=== PATIENT | male | born 1975 | race Hispanic/Latino ===

== ENCOUNTER 2020-06-20 10:05 | Emergency (ER) | payer SELFPAY ==
--- NOTE | 2020-06-20 11:41 | RAD ---
EXAM DESCRIPTION: Chest,1 View CLINICAL HISTORY: 45 years Male, SHORTNESS OF BREATH COMPARISON: None. TECHNIQUE: AP portable chest. FINDINGS/IMPRESSION: Subtle increased density within the left mid and lower lung periphery may represent pneumonia (including viral pneumonia) within the appropriate clinical setting. Mild left basilar subsegmental atelectasis. No pleural effusion or pneumothorax. The heart is normal in size. No acute osseous abnormality. Electronically signed by: Tashi Dunn DO 06/20/2020 11:39 AM [facility]
[2020-06-20 12:37] VITALS: TEMP 98.2
--- NOTE | 2020-06-20 12:43 | ED.PDOC ---
History of Present Illness - General Time Seen by Provider: 06/20/20 12:33 - History of Present Illness Allergies/Adverse Reactions: Allergies NO KNOWN ALLERGY Allergy (Unverified 10/08/13 19:27) Home Medications: Ambulatory Orders Methylprednisolone [Medrol Dose Paulo] 4 mg PO DAILY 6 Days #21 tab 06/20/20 Progress - Progress Progress: Differential diagnosis: Covid, pneumonia, influenza, bronchitis among others. 06/20/20 12:43 Patient is positive for Covid. Chest x-ray shows possible viral infiltrate. He does not have a white count. Will discharge home with Decadron prescription. Patient has been told to self isolate and follow-up with his PCP. He understands the plan of care and is in agreement. Rolando Jean-Baptiste M.D. #[id number] - Results/Orders Results/Orders: 06/20/20 11:15 Isolation:Airborne ONCE EKG STAT Pulse Ox, Continuous Monitoring STAT 06/21/20 11:15 Pulse Ox, Continuous Monitoring STAT 06/22/20 11:15 Pulse Ox, Continuous Monitoring STAT 06/23/20 11:15 Pulse Ox, Continuous Monitoring STAT Laboratory Results - last 24 hr 06/20/20 06/20/20 06/20/20 11:25 11:25 11:25 WBC 5.5 RBC 5.38 Hgb 16.0 Hct 45.6 MCV 84.9 MCH 29.7 MCHC 35.1 RDW 13.8 Plt Count 112 L MPV 9.9 Absolute Neuts (auto) 4.20 Absolute Lymphs (auto) 0.80 L Absolute Monos (auto) 0.40 Absolute Eos (auto) 0.00 Absolute Basos (auto) 0.00 Neutrophils % 77.0 Lymphocytes % 14.7 L Monocytes % 7.5 Eosinophils % 0.2 L Basophils % 0.6 PTT (SP) 34.1 H D-Dimer, Quantitative < 131.0 L Sodium 139 Potassium 3.8 Chloride 101 Carbon Dioxide 27 Anion Gap 14.8 BUN 7 Creatinine 0.69 BUN/Creatinine Ratio 10.1 Random Glucose 102 Serum Osmolality 275.7 Calcium 8.9 Magnesium 2.1 Total Bilirubin 0.7 AST 30 ALT 29 Alkaline Phosphatase 54 LD Total 181 H Creatine Kinase 158 Troponin I C-Reactive Protein 6.8 H Serum Total Protein 7.4 Albumin 4.3 Globulin 3.1 Albumin/Globulin Ratio 1.4 06/20/20 11:25 WBC RBC Hgb Hct MCV MCH MCHC RDW Plt Count MPV Absolute Neuts (auto) Absolute Lymphs (auto) Absolute Monos (auto) Absolute Eos (auto) Absolute Basos (auto) Neutrophils % Lymphocytes % Monocytes % Eosinophils % Basophils % PTT (SP) D-Dimer, Quantitative Sodium Potassium Chloride Carbon Dioxide Anion Gap BUN Creatinine BUN/Creatinine Ratio Random Glucose Serum Osmolality Calcium Magnesium Total Bilirubin AST ALT Alkaline Phosphatase LD Total Creatine Kinase Troponin I < 0.02 C-Reactive Protein Serum Total Protein Albumin Globulin Albumin/Globulin Ratio Vital Signs 06/20/20 10:10 Temperature 98.2 F Pulse Rate [ 69 pulse ox] Respiratory 18 Rate Blood Pressure 147/97 [Left Arm] O2 Sat by Pulse 98 Oximetry EKG performed 20 June 2020 at 1017 hrs.: Normal sinus rhythm at 76 bpm, normal axis deviation no ST or T wave depression or elevation. No acute ischemia, normal EKG. No comparison EKG available at this time. EXAM DESCRIPTION: Chest,1 View CLINICAL HISTORY: 45 years Male, SHORTNESS OF BREATH COMPARISON: None. TECHNIQUE: AP portable chest. FINDINGS/IMPRESSION: Subtle increased density within the left mid and lower lung periphery may represent pneumonia (including viral pneumonia) within the appropriate clinical setting. Mild left basilar subsegmental atelectasis. No pleural effusion or pneumothorax. The heart is normal in size. No acute osseous abnormality. Electronically signed by: Tashi Dunn DO 06/20/2020 11:39 AM [facility] Covid positive Departure - Departure Clinical Impression: COVID-19 virus IgG antibody detected, COVID-19, Viral respiratory illness Disposition: Discharge to Home or Self Care Condition: Good Instructions: Coronavirus Disease 2019 (COVID-19) Diet: resume usual diet Activity: increase activity as tolerated Referrals: JOHN GAYTAN IV, CANINE SERVICE INSTRUCTOR TRAINER [Active Staff] - 1 Week Prescriptions: Methylprednisolone [Medrol Dose Paulo] 4 mg PO DAILY 6 Days #21 tab Home Medications: Ambulatory Orders Methylprednisolone [Medrol Dose Paulo] 4 mg PO DAILY 6 Days #21 tab 06/20/20
[2020-06-20 12:52] VITALS: BP 118/80; O2SAT 100
== END 2020-06-20 12:52 | disposition home or self-care (01) ==
LOC: ER 10:05
DX: U07.1 COVID-19 (principal)

== ENCOUNTER 2020-06-22 08:27 | Emergency (ER) | payer SELFPAY ==
[2020-06-22] MEDS ORDERED: SODIUM CHLORIDE 0.9% 1000ML 1,000 ML IVS ONE (08:46)
--- NOTE | 2020-06-22 08:49 | ED.PDOC ---
History of Present Illness - General Time Seen by Provider: 06/22/20 08:34 Source: patient, RN notes reviewed, Vital Signs reviewed, rotating equipment specialist, old records Exam Limitations: no limitations, language barrier - History of Present Illness Comments: 45 yo male dx with COVID 5 days ago presents with worsening short of breath, chest tightness worse with breathing and decrease appetite. Was seen here two days ago and sent home on dexamethasone. SOB not worse with activity. no family hx of heart disease or blood clots. no recent travel or immobilization. Allergies/Adverse Reactions: Allergies NO KNOWN ALLERGY Allergy (Unverified 06/22/20 08:57) Home Medications: Ambulatory Orders Methylprednisolone [Medrol Dose Paulo] 4 mg PO DAILY 6 Days #21 tab 06/20/20 Azithromycin 250 mg PO DAILY #6 tab 06/22/20 Famotidine 20 mg PO BID PRN #30 tab 06/22/20 Polyethylene Glycol 3350 [Miralax] 17 gm PO DAILY 20 Days #20 pckt 06/22/20 Review of Systems - Review of Systems Constitutional: States: malaise. Denies: chills, fever EENTM: Denies: blurred vision, ear pain, throat pain Respiratory: States: cough, short of breath. Denies: orthopnea, stridor, wheezing Cardiology: States: chest pain. Denies: palpitations, syncope Gastrointestinal/Abdominal: States: constipation. Denies: abdominal pain, diarrhea, nausea, vomiting Genitourinary: Denies: frequency, hematuria Musculoskeletal: Denies: back pain, muscle pain Skin: Denies: dryness Neurological: Denies: headache, numbness, seizure Endocrine: Denies: unexplained weight gain, unexplained weight loss Hematologic/Lymphatic: Denies: blood clots, easy bleeding, easy bruising Past Medical History (General) - Patient Medical History Hx Seizures: No Hx Stroke: No Hx Dementia: No Hx Asthma: No Hx of COPD: No Hx Cardiac Disorders: No Hx Congestive Heart Failure: No Hx Pacemaker: No Hx Hypertension: No Hx Thyroid Disease: No Hx Diabetes: No Hx Gastroesophageal Reflux: Yes Hx Renal Disease: No Hx Cancer: No Hx of HIV: No Hx Hepatitis B: No Hx Hepatitis C: No Hx MRSA: No Surgical History: no surgical history - Vaccination History Hx Influenza Vaccination: No - Social History Hx Tobacco Use: No Hx Chewing Tobacco Use: No Hx Alcohol Use: Yes - social Hx Substance Use: No Hx Substance Use Treatment: No Hx Depression: No Feels Threatened In Home Enviroment: No Family Medical History - Family History Mother Family History: Unknown Hx Family Congestive Heart Failure: No Hx Cardiac Disease: No Hx Family;Other: denies hx of blood clots Physical Exam - Physical Exam General Appearance: Alert, Comfortable, No apparent distress, Well Developed, Well Groomed, Well Hydrated, Well Nourished Eye Exam: bilateral normal ENT Exam: normal ENT inspection, hearing grossly normal, TMs normal Neck: non-tender, full range of motion, supple, normal inspection, trachea midline Respiratory: chest non-tender, lungs clear, normal breath sounds, no respiratory distress, no accessory muscle use Cardiovascular/Chest: normal peripheral pulses, regular rate, rhythm, no edema, no gallop, no JVD, no murmur Gastrointestinal/Abdominal: normal bowel sounds, non tender, soft, no organomegaly, no pulsatile mass Extremity: normal range of motion, non-tender, normal inspection, no pedal edema, no calf tenderness, normal capillary refill 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 EKG shows no evidence of ischemia. Oxygen saturation 98-99%. VSS. The data reviewed when caring for this patient included: nurse notes, prior records, etc. The history and assessments from nurses notes were reviewed and considered, and the patient's home medication list was also reviewed and considered. My assessment and the results of testing completed here in the ED were discussed with the patient/family. All questions were answered, and they express understanding of my assessment and the plan. They have been instructed to return if their symptoms worsen, and have been asked to follow up with their primary care physician to recheck today's presenting complaint. Strict return precautions given. I have reviewed medication, benefits, alternatives and side effects. Patient decided to proceed with medication. Sharla Delgado DO #[id number] 06/22/20 09:38 - Results/Orders Results/Orders: 06/22/20 08:46 Isolation:Airborne ONCE Sodium Chloride 0.9% 1000ML [Ns 1000 ml] 1,000 ml IVS ONCE 06/22/20 09:00 EKG STAT Pulse Ox, Continuous Monitoring STAT 06/23/20 09:00 Pulse Ox, Continuous Monitoring STAT 06/24/20 09:00 Pulse Ox, Continuous Monitoring STAT Laboratory Results WBC 11.5 K/mm3 (4.8-10.8) H D 06/22/20 08:30 RBC 5.47 M/mm3 (4.70-6.10) 06/22/20 08:30 Hgb 16.1 gm/dL (14.0-18.0) 06/22/20 08:30 Hct 46.3 % (42.0-52.0) 06/22/20 08:30 MCV 84.6 fl (80.0-94.0) 06/22/20 08:30 MCH 29.4 pg (27.0-31.0) 06/22/20 08:30 MCHC 34.7 g/dL (33.0-37.0) 06/22/20 08:30 RDW 13.4 % (11.5-14.5) 06/22/20 08:30 Plt Count 160 K/mm3 (130-400) 06/22/20 08:30 MPV 10.0 fl (7.40-10.4) 06/22/20 08:30 Absolute Neuts (auto) 9.50 K/uL (1.8-6.8) H 06/22/20 08:30 Absolute Lymphs (auto) 1.20 K/uL (1.0-3.4) 06/22/20 08:30 Absolute Monos (auto) 0.80 K/uL (0.2-0.8) 06/22/20 08:30 Absolute Eos (auto) 0.00 K/uL (0.0-0.4) 06/22/20 08:30 Absolute Basos (auto) 0.00 K/uL (0.0-0.1) 06/22/20 08:30 Neutrophils % 82.8 % (42.0-78.0) H 06/22/20 08:30 Lymphocytes % 10.3 % (20.0-50.0) L 06/22/20 08:30 Monocytes % 6.5 % (2.0-9.0) 06/22/20 08:30 Eosinophils % 0.0 % (1.0-5.0) L 06/22/20 08:30 Basophils % 0.4 % (0.0-2.0) 06/22/20 08:30 PTT (SP) 29.2 SECONDS (21.8-31.6) 06/22/20 08:30 D-Dimer, Quantitative < 131.0 ng/ml (131-400) L 06/22/20 08:30 Sodium 139 mmol/L (135-145) 06/22/20 08:30 Potassium 3.6 mmol/L (3.6-5.0) 06/22/20 08:30 Chloride 99 mmol/L (101-111) L 06/22/20 08:30 Carbon Dioxide 28 mmol/L (21-31) 06/22/20 08:30 Anion Gap 15.6 (12-18) 06/22/20 08:30 BUN 10 mg/dL (7-18) 06/22/20 08:30 Creatinine 0.69 mg/dL (0.6-1.3) 06/22/20 08:30 BUN/Creatinine Ratio 14.5 (10-20) 06/22/20 08:30 Random Glucose 130 mg/dL (70-105) H 06/22/20 08:30 Serum Osmolality 278.3 mOsm/L (275-295) 06/22/20 08:30 Calcium 8.8 mg/dL (8.4-10.2) 06/22/20 08:30 Magnesium 1.9 mg/dL (1.8-2.5) 06/22/20 08:30 Total Bilirubin 0.5 mg/dL (0.2-1.0) 06/22/20 08:30 AST 50 IU/L (10-42) H D 06/22/20 08:30 ALT 51 IU/L (10-60) 06/22/20 08:30 Alkaline Phosphatase 57 IU/L (42-121) 06/22/20 08:30 LD Total 229 IU/L (91-180) H D 06/22/20 08:30 Creatine Kinase 137 IU/L (38-174) 06/22/20 08:30 Troponin I < 0.02 ng/mL (0.01-0.05) 06/22/20 08:30 C-Reactive Protein 1.8 mg/dL (0-1.0) H D 06/22/20 08:30 B-Natriuretic Peptide < 15.0 pg/ml (0-100) 06/22/20 08:30 Serum Total Protein 7.6 gm/dL (6.4-8.2) 06/22/20 08:30 Albumin 4.2 g/dl (3.2-5.5) 06/22/20 08:30 Globulin 3.4 gm/dL (2.3-3.5) 06/22/20 08:30 Albumin/Globulin Ratio 1.2 (1.1-1.9) 06/22/20 08:30 - EKG/XRAY/CT EKG: Sinus Comments: normal intervals, no ischemia, HR 84 XRAY: chest - bilateral infiltrates Departure - Departure Clinical Impression: COVID-19 Pneumonia Qualifiers: Pneumonia type: due to unspecified organism Laterality: bilateral Lung location: unspecified part of lung Qualified Code(s): J18.9 - Pneumonia, unspecified organism Acid reflux Qualifiers: Esophagitis presence: esophagitis presence not specified Qualified Code(s): K21.9 - Gastro-esophageal reflux disease without esophagitis Time of Disposition: : Disposition: Discharge to Home or Self Care Condition: Fair Instructions: Pneumonia in Adults, Pleuritic Chest Pain, High Fiber Diet, Constipation, Adult (DC), Acid Reflux and GERD in Adults (DC) Diet: resume usual diet Activity: increase activity as tolerated Prescriptions: Azithromycin 250 mg PO DAILY #6 tab Famotidine 20 mg PO BID PRN #30 tab PRN Reason: Heartburn Polyethylene Glycol 3350 [Miralax] 17 gm PO DAILY 20 Days #20 pckt Home Medications: Ambulatory Orders Methylprednisolone [Medrol Dose Paulo] 4 mg PO DAILY 6 Days #21 tab 06/20/20 Azithromycin 250 mg PO DAILY #6 tab 06/22/20 Famotidine 20 mg PO BID PRN #30 tab 06/22/20 Polyethylene Glycol 3350 [Miralax] 17 gm PO DAILY 20 Days #20 pckt 06/22/20 Additional Instructions: Follow up with your family doctor in 1-5 days. Warnings of ulcers and education about ulcer diagnosis given. No formal diagnosis of ulcers at this this point. follow up with your family doctor for possible EGD. Print Language: Malay
[2020-06-22 08:58] VITALS: O2SAT 98
--- NOTE | 2020-06-22 09:25 | RAD ---
EXAM DESCRIPTION: Chest x-ray,1 View CLINICAL HISTORY: 45 years Male, covid, short of breath COMPARISON: None. TECHNIQUE: AP portable chest x-ray one view. FINDINGS: Heart size is normal with normal pulmonary vascularity. Ill-defined increased density in the mid and lower lung zones left more than right consistent with pneumonia. Nodular densities over the mid lung zones may be nipple shadows. Follow-up recommended. Increased right lung infiltrate compared to previous. Left pulmonary infiltrate appears stable. No pneumothorax or pleural effusion. Bones are unremarkable. IMPRESSION: Patchy bilateral pulmonary infiltrates consistent with pneumonia. Electronically signed by: Masoud Montejo MD 06/22/2020 9:24 AM [facility]
[2020-06-22] MEDS ORDERED: ALUM & MAG HYDROX-SIMETHICONE 30 ML, LIDOCAINE VISCOUS 2% 15 ML PO ONE ×2 (09:35)
[2020-06-22 10:56] VITALS: BP 154/74; TEMP 97.4
== END 2020-06-22 10:53 | disposition home or self-care (01) ==
LOC: ER 08:27
DX: U07.1 COVID-19 (principal); J12.89 Other viral pneumonia; K21.9 Gastro-esophageal reflux disease without esophagitis
CPT/HCPCS: 36415; 71045; 80053; 82550; 83615; 83735; 83880; 84484; 85025; 85379; 85730; 86140; 93005; J7030

== ENCOUNTER 2020-06-24 13:53 | Emergency (ER) | payer SELFPAY ==
[2020-06-24] MEDS ORDERED: SODIUM CHLORIDE 0.9% 1000ML 1,000 ML IVS PRN (14:05)
[2020-06-24] MEDS ORDERED: ALUM & MAG HYDROX-SIMETHICONE 30 ML, LIDOCAINE VISCOUS 2% 15 ML PO ONE ×2 (14:05)
--- NOTE | 2020-06-24 14:10 | ED.PDOC ---
History of Present Illness - General Time Seen by Provider: 06/24/20 13:55 Source: patient, RN notes reviewed, Vital Signs reviewed Exam Limitations: language barrier - History of Present Illness Initial Comments: 45 yo male with no significant pmh comes in with continued acid reflux and shortness of breath. This is patients third visit in 6 days for similar symptoms. Was initally sent home on azithromycin and prednisone. Then sent home with pepcid for acid reflux. He comes in again, because he states he has no appetite, has acid reflux and continued cough. feels like he has to burp constantly for the past 5-6 months. would like to be admitted. Allergies/Adverse Reactions: Allergies NO KNOWN ALLERGY Allergy (Verified 06/24/20 14:26) Home Medications: Ambulatory Orders Methylprednisolone [Medrol Dose Paulo] 4 mg PO DAILY 6 Days #21 tab 06/20/20 Famotidine 20 mg PO BID PRN #30 tab 06/22/20 Polyethylene Glycol 3350 [Miralax] 17 gm PO DAILY 20 Days #20 pckt 06/22/20 Docusate Sodium [Colace Cap] 100 mg PO BID #60 cap 06/24/20 Levofloxacin [Levaquin] 750 mg PO DAILY #7 tab 06/24/20 Ondansetron HCl [Zofran] 4 mg PO TID PRN #15 tab 06/24/20 Simethicone [Mylanta Gas] 80 mg PO DAILY PRN #15 tab 06/24/20 Review of Systems - Review of Systems Constitutional: States: malaise. Denies: chills, fever EENTM: Denies: ear discharge, nose congestion, throat pain, mouth pain Respiratory: States: cough, short of breath Cardiology: States: chest pain. Denies: palpitations, syncope Gastrointestinal/Abdominal: States: constipation - last BM yesterday, nausea, vomiting. Denies: abdominal pain, diarrhea Genitourinary: Denies: frequency, hematuria Musculoskeletal: States: back pain. Denies: joint swelling, muscle pain, neck pain Skin: Denies: rash Neurological: Denies: headache, numbness, paresthesia Endocrine: Denies: unexplained weight gain, unexplained weight loss Hematologic/Lymphatic: Denies: easy bleeding, easy bruising Past Medical History (General) - Patient Medical History Hx Seizures: No Hx Stroke: No Hx Dementia: No Hx Asthma: No Hx of COPD: No Hx Cardiac Disorders: No Hx Congestive Heart Failure: No Hx Pacemaker: No Hx Hypertension: No Hx Thyroid Disease: No Hx Diabetes: No Hx Gastroesophageal Reflux: Yes Hx Renal Disease: No Hx Cancer: No Hx of HIV: No Hx Hepatitis C: No Hx MRSA: No - Vaccination History Hx Influenza Vaccination: No - Social History Hx Tobacco Use: No Hx Chewing Tobacco Use: No Hx Alcohol Use: Yes - social Hx Substance Use: No Hx Substance Use Treatment: No Hx Depression: No Family Medical History - Family History Mother Family History: Unknown Hx Family Congestive Heart Failure: No Hx Cardiac Disease: No Hx Family;Other: denies hx of blood clots Physical Exam - Physical Exam General Appearance: Alert, Comfortable, No apparent distress, Well Developed, Well Groomed, Well Hydrated, Well Nourished Eye Exam: bilateral normal Ears, Nose, Throat: hearing grossly normal, normal ENT inspection, normal pharynx Neck: non-tender, full range of motion, supple, normal inspection Respiratory: chest non-tender, lungs clear, normal breath sounds, no respiratory distress, no accessory muscle use Cardiovascular/Chest: normal peripheral pulses, regular rate, rhythm, no edema, no gallop, no JVD, no murmur Peripheral Pulses: radial,right: 2+, radial,left: 2+ Gastrointestinal/Abdominal: normal bowel sounds, non tender, soft, no organomegaly, no pulsatile mass Rectal Exam: deferred Back Exam: normal inspection, no CVA tenderness, no vertebral tenderness Extremity: normal range of motion, non-tender, normal inspection, no pedal edema, no calf tenderness, normal capillary refill Neurologic: 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 due to worsening pneumonia will switch to levaquin, patient is saturating 97% on RA. Does not meet admission criteria at this time. 06/24/20 14:05 Sodium Chloride 0.9% 1000ML [Ns 1000 ml] 1,000 ml IVS STAT 06/24/20 14:15 EKG STAT 06/24/20 14:30 STREP A SCREEN CULTURE Stat 06/24/20 15:27 Discharge Stat Laboratory Results WBC 16.0 K/mm3 (4.8-10.8) H D 06/24/20 14:02 RBC 5.24 M/mm3 (4.70-6.10) 06/24/20 14:02 Hgb 15.4 gm/dL (14.0-18.0) 06/24/20 14:02 Hct 43.6 % (42.0-52.0) 06/24/20 14:02 MCV 83.2 fl (80.0-94.0) 06/24/20 14:02 MCH 29.3 pg (27.0-31.0) 06/24/20 14:02 MCHC 35.2 g/dL (33.0-37.0) 06/24/20 14:02 RDW 13.5 % (11.5-14.5) 06/24/20 14:02 Plt Count 214 K/mm3 (130-400) 06/24/20 14:02 MPV 9.0 fl (7.40-10.4) 06/24/20 14:02 Absolute Neuts (auto) 14.60 K/uL (1.8-6.8) H 06/24/20 14:02 Absolute Lymphs (auto) 0.70 K/uL (1.0-3.4) L 06/24/20 14:02 Absolute Monos (auto) 0.60 K/uL (0.2-0.8) 06/24/20 14:02 Absolute Eos (auto) 0.00 K/uL (0.0-0.4) 06/24/20 14:02 Absolute Basos (auto) 0.00 K/uL (0.0-0.1) 06/24/20 14:02 Neutrophils % 91.5 % (42.0-78.0) H 06/24/20 14:02 Lymphocytes % 4.2 % (20.0-50.0) L 06/24/20 14:02 Monocytes % 4.0 % (2.0-9.0) 06/24/20 14:02 Eosinophils % 0.0 % (1.0-5.0) L 06/24/20 14:02 Basophils % 0.3 % (0.0-2.0) 06/24/20 14:02 D-Dimer, Quantitative < 131.0 ng/ml (131-400) L 06/24/20 14:02 Sodium 139 mmol/L (135-145) 06/24/20 14:02 Potassium 3.7 mmol/L (3.6-5.0) 06/24/20 14:02 Chloride 100 mmol/L (101-111) L 06/24/20 14:02 Carbon Dioxide 27 mmol/L (21-31) 06/24/20 14:02 Anion Gap 15.7 (12-18) 06/24/20 14:02 BUN 9 mg/dL (7-18) 06/24/20 14:02 Creatinine 0.68 mg/dL (0.6-1.3) 06/24/20 14:02 BUN/Creatinine Ratio 13.2 (10-20) 06/24/20 14:02 Random Glucose 181 mg/dL (70-105) H D 06/24/20 14:02 Serum Osmolality 280.8 mOsm/L (275-295) 06/24/20 14:02 Calcium 8.8 mg/dL (8.4-10.2) 06/24/20 14:02 Total Bilirubin 0.8 mg/dL (0.2-1.0) 06/24/20 14:02 AST 48 IU/L (10-42) H 06/24/20 14:02 ALT 83 IU/L (10-60) H D 06/24/20 14:02 Alkaline Phosphatase 69 IU/L (42-121) D 06/24/20 14:02 Troponin I < 0.02 ng/mL (0.01-0.05) 06/24/20 14:02 Serum Total Protein 7.7 gm/dL (6.4-8.2) 06/24/20 14:02 Albumin 4.2 g/dl (3.2-5.5) 06/24/20 14:02 Globulin 3.5 gm/dL (2.3-3.5) 06/24/20 14:02 Albumin/Globulin Ratio 1.2 (1.1-1.9) 06/24/20 14:02 Group A Strep Rapid Negative (NEGATIVE) 06/24/20 14:30 The data reviewed when caring for this patient included: nurse notes, prior records, etc. The history and assessments from nurses notes were reviewed and considered, and the patient's home medication list was also reviewed and considered. My assessment and the results of testing completed here in the ED were discussed with the patient/family. All questions were answered, and they express understanding of my assessment and the plan. They have been instructed to return if their symptoms worsen, and have been asked to follow up with their primary care physician to recheck today's presenting complaint. Strict return precautions given. I have reviewed medication, benefits, alternatives and side effects. Patient decided to proceed with medication. Sharla Delgado DO #[id number] 06/24/20 16:08 06/24/20 16:09 - Results/Orders Results/Orders: leukocytosis with left shift. no abdominal pain, no diarrhea. - EKG/XRAY/CT EKG: Sinus Comments: no ischemia. normal intervals. XRAY: chest - bilateral patchy pneumonia. Departure - Departure Clinical Impression: COVID-19 Acid reflux Qualifiers: Esophagitis presence: without esophagitis Qualified Code(s): K21.9 - Gastro- esophageal reflux disease without esophagitis Constipation Qualifiers: Constipation type: unspecified constipation type Qualified Code(s): K59.00 - Constipation, unspecified Time of Disposition: 15:21 Disposition: Discharge to Home or Self Care Instructions: High Fiber Diet, Constipation, Adult (DC), Acid Reflux and GERD in Adults (DC), Upper GI Endoscopy (DC) Diet: resume usual diet Activity: increase activity as tolerated Referrals: SHIRLEY PATE MD [Physicians] - 1-2 Weeks Prescriptions: Docusate Sodium [Colace Cap] 100 mg PO BID #60 cap Levofloxacin [Levaquin] 750 mg PO DAILY #7 tab Simethicone [Mylanta Gas] 80 mg PO DAILY PRN #15 tab PRN Reason: Heartburn Ondansetron HCl [Zofran] 4 mg PO TID PRN #15 tab PRN Reason: Vomiting Home Medications: Ambulatory Orders Methylprednisolone [Medrol Dose Paulo] 4 mg PO DAILY 6 Days #21 tab 06/20/20 Famotidine 20 mg PO BID PRN #30 tab 06/22/20 Polyethylene Glycol 3350 [Miralax] 17 gm PO DAILY 20 Days #20 pckt 06/22/20 Docusate Sodium [Colace Cap] 100 mg PO BID #60 cap 06/24/20 Levofloxacin [Levaquin] 750 mg PO DAILY #7 tab 06/24/20 Ondansetron HCl [Zofran] 4 mg PO TID PRN #15 tab 06/24/20 Simethicone [Mylanta Gas] 80 mg PO DAILY PRN #15 tab 06/24/20 Print Language: Gambian
--- NOTE | 2020-06-24 14:31 | RAD ---
EXAM DESCRIPTION: Chest,1 View CLINICAL HISTORY: Dyspnea. Pneumonia. Covid FINDINGS/ IMPRESSION: Comparison 06/22/2020. Lung volumes are slightly lower. Patchy bilateral peripheral infiltrates slightly increasing in the right upper lobe and left lower lobe. This can be seen with viral pneumonia. Normal cardiomediastinal silhouette. No effusions Electronically signed by: Tong Salinas MD 06/24/2020 2:29 PM [facility]
[2020-06-24] MEDS ORDERED: cefTRIAXone SODIUM 1 GM in SODIUM CHL 0.9% 50ML MIN-BAG+ 50 ML IVPB ONE (14:56)
[2020-06-24] MEDS ORDERED: ONDANSETRON INJ 4 MG/2 ML VIAL IV ONE (15:31)
[2020-06-24 16:22] VITALS: BP 143/88; TEMP 99.8; O2SAT 95
== END 2020-06-24 15:50 | disposition home or self-care (01) ==
LOC: ER 13:53
DX: U07.1 COVID-19 (principal); K21.9 Gastro-esophageal reflux disease without esophagitis; K59.00 Constipation, unspecified; J12.89 Other viral pneumonia; R11.2 Nausea with vomiting, unspecified; Z79.899 Other long term (current) drug therapy
CPT/HCPCS: 36415; 71045; 80053; 84484; 85025; 85379; 87070; 87880; 93005; J0696; J2405; J7030; J7050